=== PATIENT | female | born 1965 | race Caucasian/White ===

== ENCOUNTER → 2020-07-06 15:59 | Outpatient (CLI) | payer BC, SELFPAY ==
--- NOTE | ~2020-07-06 | MM_ITS ---
EXAMINATION: MM screening [facility] BI w magdalena HISTORY: Screening mammogram TECHNIQUE: Craniocaudal and mediolateral oblique 3-D tomosynthesis images were obtained and synthetic 2-D images were generated. CAD analysis was submitted and interpreted. COMPARISON: 06/16/2019, 05/29/2018, 07/04/2017, 07/07/2016 BREAST PARENCHYMAL COMPOSITION: The breasts are heterogeneously dense, which may obscure small masses . FINDINGS: There is no evidence of suspicious mass, calcification, or architectural distortion to sugg est malignancy in either breast. There has been no suspicious interval change. IMPRESSION: 1. No mammographic evidence of malignancy. 2. Recommend routine screening mammography in one year. BI-RADS Category 1: Negative Reviewed, dictated and finalized at location A. AND SCIENCE INSTRUCTOR
== END ==
PROVIDERS: PCP Family Medicine Adolescent Medicine; Visit Provider Obstetrics & Gynecology
DX: Z12.31 Encounter for screening mammogram for malignant neoplasm of breast (principal)
CPT/HCPCS: 77063; 77067

== ENCOUNTER → 2021-07-18 07:12 | Outpatient (CLI) | payer BC, SELFPAY ==
--- NOTE | ~2021-07-18 | MM_ITS ---
EXAMINATION: MM screening [facility] BI w magdalena HISTORY: Screening TECHNIQUE: Craniocaudal and mediolateral oblique 3-D tomosynthesis images were obtained and synthetic 2-D images were generated. CAD analysis was submitted and interpreted. COMPARISON: Comparison to multiple prior studies sequentially, with oldest reviewed study dated 06/14. BREAST PARENCHYMAL COMPOSITION: The breasts are heterogeneously dense, which may obscure small masses . FINDINGS: There scattered benign-appearing breast calcifications. There is no evidence of suspicious mass, calcification, or architectural distortion to suggest malignancy in either breast. There has be en no suspicious interval change. IMPRESSION: 1. No mammographic evidence of malignancy. 2. Recommend routine screening mammography in one year. BI-RADS Category 2: Benign finding(s). Reviewed, dictated and finalized at location A. ER HAND
== END ==
PROVIDERS: Visit Provider Obstetrics & Gynecology
DX: Z12.31 Encounter for screening mammogram for malignant neoplasm of breast (principal)
CPT/HCPCS: 77063; 77067

== ENCOUNTER → 2022-08-14 15:19 | Outpatient (CLI) | payer BC, SELFPAY ==
--- NOTE | ~2022-08-14 | MM_ITS ---
EXAMINATION: MM screening [facility] BI w magdalena HISTORY: Screening mammogram TECHNIQUE: Craniocaudal and mediolateral oblique 3-D tomosynthesis images were obtained and synthetic 2-D images were generated. CAD analysis was submitted and interpreted. COMPARISON: 07/18/2021, 07/06/2020, 06/16/2019 bilateral screening mammogram examinations BREAST PARENCHYMAL COMPOSITION: The breasts are heterogeneously dense, which may obscure small masses . FINDINGS: Stable mild fibroglandular asymmetry. There is no evidence of suspicious mass, calcificatio n, or architectural distortion to suggest malignancy in either breast. There has been no suspicious i nterval change. IMPRESSION: 1. No mammographic evidence of malignancy. 2. Recommend routine screening mammography in one year. BI-RADS Category 2: Benign finding(s). Reviewed, dictated and finalized at location A.
== END ==
PROVIDERS: PCP Family Medicine Adolescent Medicine; Visit Provider Obstetrics & Gynecology
DX: Z12.31 Encounter for screening mammogram for malignant neoplasm of breast (principal)
CPT/HCPCS: 77063; 77067

== ENCOUNTER 2023-09-13 13:50 | Outpatient (CLI) | payer BC, SELFPAY ==
--- NOTE | ~2023-09-13 | MM_ITS ---
EXAMINATION: MM screening [facility] BI w magdalena HISTORY: Screening TECHNIQUE: Craniocaudal and mediolateral oblique 3-D tomosynthesis images were obtained and synthetic 2-D images were generated. CAD analysis was submitted and interpreted. COMPARISON: Comparison to multiple prior studies sequentially, with oldest reviewed study dated 07/18. BREAST PARENCHYMAL COMPOSITION: Dense: The breasts are heterogeneously dense, which may obscure small masses FINDINGS: There is no evidence of suspicious mass, calcification, or architectural distortion to sugg est malignancy in either breast. There has been no suspicious interval change. IMPRESSION: 1. No mammographic evidence of malignancy. 2. Recommend routine screening mammography in one year. BI-RADS Category 1: Negative Reviewed, dictated and finalized at location A.
== END 2023-09-13 13:51 ==
PROVIDERS: PCP Obstetrics & Gynecology; Visit Provider Obstetrics & Gynecology
DX: Z12.31 Encounter for screening mammogram for malignant neoplasm of breast (principal)
CPT/HCPCS: 77063; 77067

== ENCOUNTER 2024-09-10 00:53 | Day surgery (SDC) | payer BC, SELFPAY ==
[2024-09-01 11:12] VITALS: BMI 24.9
--- OUTSIDE RECORDS SUMMARY | 2024-09-10 00:56 | XMS_ITS | Clinical Summary ---
Author Organization [facility] Address [address] [place] [address] Care Team Providers Care Millwright Helper Name Role Phone Darius Olivia MD Primary Care Provider + Source Comments [facility],non-owned Affiliates and Associated Physician Practices is amultiple site organization consisting of ambulatory clinics and hospital sitesin [place], [place], [place] and [place]. This disclosure is being madepursuant to the Care Everywhere program and may not contain all information available regarding this patient. Last updated 18.[facility] [employer] Social History Tobacco Use Types Packs/Day Years Used Date Smoking Tobacco: Never Assessed Sex and Gender Information Value Date Recorded Sex Assigned at Not on file Gender Identity Not on file Sexual Orientation Not on file Plan of Treatment Health Maintenance Due Date Last Done Comments COLOGUARD (AGES 45-75) - COL ON CA SCREENING 1967 COLON MONITORING 1967 COLONOSCOPY - COLON CA SCREENING 1967 CT COLONOGRAPHY - COLON CA SCREENING 1967 Colorectal Cancer Screening 1967 FIT - COLON CA SCREENING 1967 FLEX SIG - COLON CA SCREENING 1967 LIPID TESTING 1967 MAMMOGRAM 1967 PAP SMEAR 1967 HIV SCREENING 1982 HEPATITIS C SCREENING 06/01/1985 DTAP/TDAP/TD VACCINES (1 - Tdap) 1986 HEPATITIS B VACCINE (1 of 3 - 19+ 3-dose series) 1986 PNEUMOCOCCAL VACCINE 50+ (1 of 1 - PCV) 2017 ZOSTER VACCINE (1 of 2) 2017 COVID-19 VACCINE ( - 2023-2 5 season) 2024 DEPRESSION SCREENING 06/03/2024 INFLUENZA VACCINE (Season Ended) 2025 HIB VACCINE Aged Out No longer eligi ble based on patient's age to complete this topic HPV VACCINE Aged Out No longer eligi ble based on patient's age to complete this topic MENINGOCOCCAL (Group B) VACC INE SHARED DECISION-MAKING Aged Out No longer eligibl e based on patient's age to complete this topic MENINGOCOCCAL GROUPS A/C/Y/W VACCINE Aged Out No longer eligible b ased on patient's age to complete this topic PNEUMOCOCCAL VACCINE Aged Out No long er eligible based on patient's age to complete this topic Care Teams Millwright Helper Relationship Specialty Start Date End Date Darius Olivia MD [address] [place] [address] PCP - General 09/13/17
--- OUTSIDE RECORDS SUMMARY | 2024-09-10 00:56 | XMS_ITS | Encounter Summary ---
Author Organization [facility] Address [address] [place] [address] Care Team Providers Care Contract Post Office Clerk Name Role Phone Darius Olivia MD Primary Care Provider + Encounter Details Date Type Department Care Team (Late st Contact Info) Description 09/13/2020 Lab Requisition [facility] DermPath Lab [address] [place] [phone] Johnny Neff MD [address] [place] [address] Social History Tobacco Use Types Packs/Day Years Used Date Smoking Tobacco: Never Assessed Sex and Gender Information Value Date Recorded Sex Assigned at Not on file Gender Identity Not on file Sexual Orientation Not on file documented as of this encounter Plan of Treatment Not on file documented as of this encounter Procedures Procedure Name Priority Date/Time Associated Diagnosis Comments DERMATOPATHOLOGY Routine 09/09/2020 12:0 0 AM CDT documented in this encounter Results * DERMATOPATHOLOGY (09/09/2020 12:00 AM CDT) Case Report Dermatopathology Report Case: [id number] Authorizing Provider: Johnny Neff MD Collected: 09/09/2020 12:00 AM Ordering Location: [facility] DermPath Lab Received: 09/13/2020 08:11 AM Pathologist: Eva Ward MD Specimen: Skin, right jaw 1 5:40 PM CDT DERMATOPATHOLOGY LABORATORY Final Diagnosis Specimen A. SKIN, right jaw: INTRADERMAL MELANOCYTIC NEVUS (D22.39) 1 5:40 PM CDT DERMATOPATHOLOGY LABORATORY Clinical History Ang hyperplasia vs BCC. Path# [id number]. 1 5:40 PM CDT DERMATOPATHOLOGY LABORATORY Gross Description Specimen A: Received is one formalin filled container labeled with the patient's name and designated right jaw. The specimen consists of a shave biopsy measuring [id number]. Jar 0. 1 5:40 PM CDT DERMATOPATHOLOGY LABORATORY Microscopic Description Specimen A. SKIN, right jaw: There are nests of cytologically bland melanocytes within the dermis that mature with depth. 1 5:40 PM CDT DERMATOPATHOLOGY LABORATORY Disclaimer An external and internal positive and negative controls are appropriate for the histochemical, immunohistochemical and immunofluorescence stain(s) in this case (if any), except where stated explicitly. The performance characteristics of the stain(s) cited in this report were developed and its performance characteristic determined by the Dermatopathology Laboratory at [facility], directed by Dr. Shine Ruggiero. These tests need not be, and therefore are not, approved by the [place] Food and Drug Administration. The tests are used for clinical purposes. Billing Codes Specimen Charges Stain Charges 77637 1 1 5:40 PM CDT DERMATOPATHOLOGY LABORATORY Embedded Images 1 5:40 PM CDT DERMATOPATHOLOGY LABORATORY Pathology/Cytolog y TISSUE SPECIMEN FROM SKIN / Unknown 09/09/2020 09/13/2020 8:11 AM CDT Johnny Neff MD LAB - PATHOLOGY/CYTO LOGY ORDERABLES DERMATOPATHOLOGY LABORATORY [facility] - Department of Dermatology [address], [address] [phone] documented in this encounter Visit Diagnoses Not on filedocumented in this encounter Care Teams Contract Post Office Clerk Relationship Specialty Start Date End Date Darius Olivia MD [address] [address] PCP - General 09/13/17 documented as of this encounter
--- OUTSIDE RECORDS SUMMARY | 2024-09-10 00:56 | XMS_ITS | Clinical Summary ---
Author Organization [facility] Address [address] [place] [phone] Care Team Providers Care Information Security Risk Analyst Name Role Phone Darius Olivia MD Primary Care Prov ider Darius Oilvia MD Unavailable + Allergies No known active allergies Medications spironolactone (ALDACTONE) 50 mg tablet 03/28/2022 Active multivitamin with minerals tablet Take 1 tablet by mouth daily Active meloxicam (MOBIC) 7.5 mg tablet Take 1 tablet (7.5 mg total) by mouth 2 (two) times a day as needed for pain 60 tablet 09/13/2022 Active gabapentin (NEURONTIN) 100 mg capsule Take 1 capsule (100 mg total) by mouth 3 (three) times a day 90 capsule 09/13/2022 Active Active Problems No known active problems Surgical History Surgery Date Site/Laterality Comments OTHER SURGICAL HISTORY thyroid nodule: patient advised to f/u with PCP Medical History Medical History Date Comments Hx Other Medical thyroid nodule Hx Other Medical uterine ablatio n Hx Other Medical endometriosis Anterolisthesis of lumbar spine-grade 1 L4 on L5 05/14/2022 DDD (degenerative disc disease), lumbar Lumbar facet arthropathy Levocurvature of spine-mild 05/14/2022 Family History Medical History Relation Name Comments Colon polyps Mother Colon polyps; Other Other 1 No family histo ry of Cancer, colon; Other Other 2 No family histo ry of Crohn's disease; Other Other 3 No family histo ry of Ulcerative colitis; Relation Name Status Comments Mother Other 1 Other 2 Other 3 Social History Tobacco Use Types Packs/Day Years Used Date Smoking Tobacco: Every Day Cigarettes Vaping Tobacco Cessation:Ready to Q uit: Not Asked; Counseling Given: Not Answered Alcohol Use Standard Drinks/Week Comments Yes 0 (1 standard drink = 0.6 oz pur e alcohol) AUDIT-C Answer Date Recorded Q1: How often do you have a drink containing alc ohol? 2-4 times a month 05/14/2022 Q2: How many drinks containi ng alcohol do you have on a typical day when you are drinking? 1 or 2 05/14/2022 Q3: How often do you have si x or more drinks on one occasion? Never 05/14/2022 Comments Unknown Sex and Gender Information Value Date Recorded Sex Assigned at Not on file Legal Sex Female 3:14 AM HOT DIE PICKER Gender Identity Not on file Sexual Orientation Not on file Obstetrics History Last Filed Vital Signs Vital Sign Reading Time Taken Comments Blood Pressure 115/77 07/06/2014 9:34 AM HOT DIE PICKER Pulse 73 07/06/2014 9:34 AM HOT DIE PICKER Temperature - - Respiratory Rate - - Oxygen Saturation - - Inhaled Oxygen Concentration - - Weight 72.6 kg (160 lb) 09/13/2022 1:02 PM CDT Height 167.6 cm (5' 6 ) 09/13/2022 1:02 PM CDT Body Mass Index 25.82 09/13/2022 1:02 PM CDT Plan of Treatment Health Maintenance Due Date Last Done Comments Breast Cancer Screening-Mammogram 1967 Cervical Cancer Screening 1967 Depression Screening 1967 Hepatitis C Screening 1967 DTaP/Tdap/Td Vaccine (1 - Tdap) 1978 Hepatitis B Screening 1985 Regular Well Visit/Exam 18-64 1985 Pneumococcal vaccine <65 (1 of 2 - PCV) 1986 Zoster Vaccine (1 of 2) 2017 Colon Cancer Screening-Colonoscopy 12/17/20232013 Covid-19 Vaccine ( season) 2024, 11/04/2020 Influenza Vaccine (#1) 2024 Colon Cancer Screening-CT Colonography Discontinued Colon Cancer Screening-DNA Stool Discontinued 12/17/19 14 Colon Cancer Screening-FIT Discontinued 12/16/2013 Colon Cancer Screening-Sigmoidoscopy Discontinued 12/01 Procedures Procedure Name Priority Date/Time Associated Diagnosis Comments COLONOSCOPY REPORT 12/16/2013 from Last 3 Months or Most Recently Relevant to Health Maintenance Results * COLONOSCOPY REPORT (12/16/2013) Anatomical Region Laterality Modality Other Narrative 12/16/2013 Ordered by an unspecified provider. us Historical Provider GI PROCEDURE ORDERABLES F inal Result from Last 3 Months or Most Recently Relevant to Health Maintenance Insurance [place] [employer] [employer] Care Teams Information Security Risk Analyst Relationship Specialty Start Date End Date Darius Olivia MD [address] [place] [address] PCP - General 04/08/19 Darius Olivia MD [address] [place] [address] 04/08/19
--- OUTSIDE RECORDS SUMMARY | 2024-09-10 00:56 | XMS_ITS | Referral Summary ---
Author Organization [facility] Address [address] [place] [phone] Care Team Providers Care Senior Peoplesoft Developer Name Role Phone Darius Olivia MD Primary Care Prov ider Darius Olivia MD Unavailable + Allergies No known active [...] Active Active Problems No known active problems Social History Tobacco Use Types Packs/Day Years [...] on file Legal Sex Female 3:14 AM AIR POLLUTION ENGINEER Gender Identity Not on file Sexual Orientation Not on file Last Filed Vital Signs Vital Sign Reading Time Taken Comments Blood Pressure 115/77 07/06/2014 9:34 AM AIR POLLUTION ENGINEER Pulse 73 07/06/2014 9:34 AM AIR POLLUTION ENGINEER Temperature - - Respiratory Rate - - Oxygen Saturation - - Inhaled Oxygen Concentration - - Weight 72.6 kg (160 lb) 09/13/2022 1:02 PM CDT Height 167.6 cm (5' 6 ) 09/13/2022 1:02 PM CDT Body Mass Index 25.82 09/13/2022 1:02 PM CDT Plan of Treatment Not on file Procedures Procedure Name Priority Date/Time Associated Diagnosis Comments COLONOSCOPY REPORT 12/16/2013 from Last 3 Months or Most Recently Relevant to Health Maintenance Results * COLONOSCOPY REPORT (12/16/2013) Anatomical Region Laterality Modality Other Narrative 12/16/2013 Ordered by an unspecified provider. Historical Provider GI PROCEDURE ORDERABLES F inal Result from Last 3 Months or Most Recently Relevant to Health Maintenance Insurance [employer] OOS [employer] ACCESS OOS Care Teams Senior Peoplesoft Developer Relationship Specialty Start Date End Date Darius Olivia MD [address] [place] [address] PCP - General 04/08/19 Darius Olivia MD [address] [place] [address] 04/08/19
--- OUTSIDE RECORDS SUMMARY | 2024-09-10 00:56 | XMS_ITS | Encounter Summary ---
Author Organization [facility] Address [address] [place] [address] Care Team Providers Care Heater Engineer Helper Name Role Phone Darius Olivia MD Primary Care Provider + Encounter Details Date Type Department Care Team (Late st Contact Info) Description 05/10/2021 Lab Requisition [facility] DermPath Lab [address] [place] [phone] Johnny Neff MD [address] [place] [address] Social History Tobacco Use Types Packs/Day Years Used Date Smoking Tobacco: Never Assessed Sex and Gender Information Value Date Recorded Sex Assigned at Not on file Gender Identity Not on file Sexual Orientation Not on file documented as of this encounter Plan of Treatment Not on file documented as of this encounter Procedures Procedure Name Priority Date/Time Associated Diagnosis Comments DERMATOPATHOLOGY Routine 05/09/2021 12:0 0 AM BACK TENDER PAPER MACHINE documented in this encounter Results * DERMATOPATHOLOGY (05/09/2021 12:00 AM BACK TENDER PAPER MACHINE) Case Report Dermatopathology Report Case: [id number] Authorizing Provider: Johnny Neff MD Collected: 05/09/2021 12:00 AM Ordering Location: [facility] DermPath Lab Received: 05/10/2021 04:51 PM Pathologist: Aurelia Herrera MD Specimens: A) - Skin, left upper posterior arm B) - Skin, right upper arm C) - Skin, right upper back 12:47 PM BACK TENDER PAPER MACHINE DERMATOPATHOLOGY LABORATORY Final Diagnosis Specimen A. SKIN, left upper posterior arm: INTRADERMAL MELANOCYTIC NEVUS WITH CONGENITAL FEATURES (D22.9) Specimen B. SKIN, right upper arm: COMPOUND NEVUS WITH CONGENITAL FEATURES (D22.61) Specimen C. SKIN, right upper back: INTRADERMAL MELANOCYTIC NEVUS WITH CONGENITAL FEATURES (D22.9) 12:47 PM [facility] DERMATOPATHOLOGY LABORATORY Clinical History A: Nevus R/O atypia. Path# [id number]. B: Nevus R/O atypia. Path# [id number]. C: Nevus R/O atypia. Path# [id number]. 12:47 PM [facility] DERMATOPATHOLOGY LABORATORY Gross Description Specimen A: Received is one formalin filled container labeled with the patient's name and designated left upper posterior arm. The specimen consists of a shave biopsy measuring [id number]. Jar 0. Specimen B: Received is one formalin filled container labeled with the patient's name and designated right upper arm. The specimen consists of a shave biopsy measuring [id number]. Jar 0. Specimen C: Received is one formalin filled container labeled with the patient's name and designated right upper back. The specimen consists of a shave biopsy measuring [id number]. Jar 0. 12:47 PM [facility] DERMATOPATHOLOGY LABORATORY Microscopic Description Specimen A. SKIN, left upper posterior arm: There are nests of cytologically bland melanocytes within the dermis. Some of these melanocytes are concentrated around blood vessels and adnexal structures. Specimen B. SKIN, right upper arm: There are nests of melanocytes at the dermal-epidermal junction and within the dermis. Some melanocytes are splayed between collagen bundles and are localized around adnexal structures. Specimen C. SKIN, right upper back: There are nests of cytologically bland melanocytes within the dermis. Some of these melanocytes are concentrated around blood vessels and adnexal structures. 12:47 PM [facility] DERMATOPATHOLOGY LABORATORY Disclaimer An external and internal positive and negative controls are appropriate for the histochemical, immunohistochemical and immunofluorescence stain(s) in this case (if any), except where stated explicitly. The performance characteristics of the stain(s) cited in this report were developed and its performance characteristic determined by the Dermatopathology Laboratory at [facility], directed by Dr. Shine Ruggiero. These tests need not be, and therefore are not, approved by the [place] Food and Drug Administration. The tests are used for clinical purposes. Billing Codes Specimen Charges Stain Charges 73685 [id number] 36441 1 1 1 1 12:47 PM BACK TENDER PAPER MACHINE DERMATOPATHOLOGY LABORATORY Embedded Images 12:47 PM BACK TENDER PAPER MACHINE DERMATOPATHOLOGY LABORATORY Pathology/Cytology TISSUE SPECIMEN FROM SKIN / Unknown 05/09/2021 05/10/2021 4:51 PM BACK TENDER PAPER MACHINE Miscellaneous samples (specimen) TISSUE SPECIMEN FROM SKIN / Unknown 05/09/2021 05/10/2021 4:51 PM BACK TENDER PAPER MACHINE Miscellaneous samples (specimen) TISSUE SPECIMEN FROM SKIN / Unknown 05/09/2021 05/10/2021 4:51 PM BACK TENDER PAPER MACHINE Johnny Neff MD LAB - PATHOLOGY/CYTO LOGY ORDERABLES DERMATOPATHOLOGY LABORATORY [facility] - Department of Dermatology [facility] Medicine [address] [place] [address], [address] [phone] documented in this encounter Visit Diagnoses Not on filedocumented in this encounter Care Teams Heater Engineer Helper Relationship Specialty Start Date End Date Darius Olivia MD [address] [place] [id number] PCP - General 09/13/17 documented as of this encounter
--- OUTSIDE RECORDS SUMMARY | 2024-09-10 00:56 | XMS_ITS | Encounter Summary ---
Author Organization [facility] Address [address] [place] [address] Care Team Providers Care Siding Installer Name Role Phone Darius Olivia MD Primary Care Provider + Encounter Details Date Type Department Care Team (Late st Contact Info) Description 08/31/2022 Lab Requisition [facility] [address] [place] [phone] Johnny Neff MD [address] [place] [address] Social History Tobacco Use Types Packs/Day Years Used Date Smoking Tobacco: Never Assessed Sex and Gender Information Value Date Recorded Sex Assigned at Not on file Gender Identity Not on file Sexual Orientation Not on file documented as of this encounter Plan of Treatment Not on file documented as of this encounter Procedures Procedure Name Priority Date/Time Associated Diagnosis Comments DERMATOPATHOLOGY Routine 08/29/2022 3:33 AM CDT documented in this encounter Results * DERMATOPATHOLOGY (08/29/2022 3:33 AM CDT) Case Report Dermatopathology Report Case: [id number] Authorizing Provider: Johnny Neff MD Collected: 08/29/2022 03:33 AM Ordering Location: [facility] Received: 08/31/2022 09:27 AM Pathologist: Chantel Franklin MD Specimen: Skin, right post shoulder 12:57 PM CDT DERMATOPATHOLOGY LABORATORY Final Diagnosis Specimen A. SKIN, right post shoulder: LENTIGINOUS MELANOCYTIC NEVUS, COMPOUND TYPE, IRRITATED (D22.61) 3 12:57 PM CDT DERMATOPATHOLOGY LABORATORY Clinical History Lentigo vs MM Path#[id number] 3 12:57 PM CDT DERMATOPATHOLOGY LABORATORY Gross Description Specimen A: Received is one formalin filled container labeled with the patient's name and designated right post shoulder. The specimen consists of a shave biopsy measuring 6x5x1 mm. Jar 0. 12:57 PM CDT DERMATOPATHOLOGY LABORATORY Microscopic Description Specimen A. SKIN, right post shoulder: This is a compound nevus. There is melanin pigment in the stratum corneum. There is a lentiginous proliferation of melanocytes between nevus nests of cells along the dermal epidermal junction. There is underlying fibroplasia of the papillary dermis. The intradermal component is bland in appearance and matures with depth. (Compound Malachi's Nevus) 12:57 PM CDT DERMATOPATHOLOGY LABORATORY Disclaimer An external and internal positive and negative controls are appropriate for the histochemical, immunohistochemical and immunofluorescence stain(s) in this case (if any), except where stated explicitly. The performance characteristics of the stain(s) cited in this report were developed and its performance characteristic determined by the Dermatopathology Laboratory at [facility], directed by Dr. Shine Ruggiero. These tests need not be, and therefore are not, approved by the [place] Food and Drug Administration. The tests are used for clinical purposes. Billing Codes Specimen Charges Stain Charges 25768 1 3 12:57 PM CDT DERMATOPATHOLOGY LABORATORY Embedded Images 3 12:57 PM CDT DERMATOPATHOLOGY LABORATORY Pathology/Cytolo gy TISSUE SPECIMEN FROM SKIN / Unknown 08/29/2022 3:33 AM CDT 08/31/2022 9:27 AM CDT Johnny Neff MD LAB - PATHOLOGY/CYTO LOGY ORDERABLES DERMATOPATHOLOGY LABORATORY [facility] - Department of Dermatology [address], [address] [phone] documented in this encounter Visit Diagnoses Not on filedocumented in this encounter Care Teams Siding Installer Relationship Specialty Start Date End Date Darius Olivia MD [address] [address] PCP - General 09/13/17 documented as of this encounter
[2024-09-10 09:10] VITALS: BP 109/82; PULSE 83; RESP 18; TEMP 36.6; O2SAT 100
[2024-09-10] MEDS: LACTATED RINGERS 1,000 ML 150 ML IV CONT (09:18)
--- NOTE | 2024-09-10 09:33 | P.PNAN_ITS ---
Anes - Initial Pre Proc Eval Procedure: Operation Date: 09/10/24 10:30 Proposed Procedures p Screening Colonoscopy - Zach Devi MD Date/Time: 09/10/24 09:34 Surgeon: Zach Devi MD Pre Op Diagnosis: Screen Patient Data Age: 59 Gender: F Height: 1.7 m Weight: 74.2 kg Last Vital Signs Temp 97.8 F 09/10/24 09:10 Pulse 83 09/10/24 09:10 Resp 18 09/10/24 09:10 BP 109/82 09/10/24 09:10 Pulse Ox 100 09/10/24 09:10 O2 Del Method Room Air 09/10/24 09:10 Allergies Allergy/AdvReac Type Severity Reaction Status Date / Time No Known Allergies Allergy Verified 09/10/24 09:09 Home Medications ?Medication ?Instructions ?Recorded ?Confirmed ?Type cyanocobalamin (vitamin B-12) 1,000 mcg PO DAILY 09/21/22 09/10/24 History 1,000 mcg capsule spironolactone 100 mg tablet 100 mg PO DAILY 09/21/22 09/10/24 History vitamin E (dl, acetate) 450 mg 450 mg PO DAILY 09/21/22 09/10/24 History (1,000 unit) capsule Patient hx anesthesia problems: none Family hx anesthesia problems: none Results Review: All pre-operative results and documents have been reviewed as part of the pre- operative evaluation. PENDING SALE TO [facility] Past Medical History Medical History (Updated 09/21/22 @ 10:40 by Twila Bañuelos APRN) Personal history of skin cancer History of atypical nevus Endometriosis Surgical History Surgical History (Updated 09/21/22 @ 10:40 by Twila Bañuelos APRN) History of tonsillectomy H/O total hysterectomy reports ovaries were spared Family History Family History Grandparent Family history of malignant neoplasm of breast Mother Family history of malignant neoplasm of breast in first degree relative Social History Social History Smoking status: Light tobacco smoker Tobacco type: cigarettes Additional smoking assessment comments: smokes socially, few times a week Alcohol intake: current Drinks per week: 4 Substance use: never Substance use type: does not use Living arrangements: with family Spiritual care concerns: No Anes - Eval Final PreProcedure Day of Procedure 09/10/24 09:34 Patient weight: normal Heart: regular rate and rhythm Lungs: clear to auscultation Airway: Mallampati scale class II Neurological: alert and oriented Last oral intake: >/= 8 hours ASA classification: II Emergent: no Anesthetic plan: proceed Anesthesia type and monitoring: general GIVS and standard monitoring Results Review: All pre-operative results and documents have been reviewed as part of the pre- operative evaluation. Informed Consent: The patient's anesthetic plan and its attendant risks and benefits were disc ussed with the patient/family/POA. Questions were solicited and answers provided to the satisfaction of the patient/family/POA.
--- NOTE | 2024-09-10 09:44 | PM.IMHP ---
H&P: HPI History of Present Illness Date/Time: 09/10/24 09:44 Chief Complaint: Screening colonoscopy Narrative: This is the patient's 2nd colonoscopy. The previous 1 was 10 years ago. There are no GI symptoms and there is no family history of colorectal cancer. Review of Systems Review of Systems: All systems reviewed & are unremarkable except as noted in HPI and below PMFSH Past Medical History Medical History (Updated 09/10/24 @ 09:45 by Zach Devi MD) Personal history of skin cancer History of atypical nevus Endometriosis Surgical History Surgical History (Updated 09/21/22 @ 10:40 by Twila Bañuelos APRN) History of tonsillectomy H/O total hysterectomy reports ovaries were spared Family History Family History Grandparent Family history of malignant neoplasm of breast Mother Family history of malignant neoplasm of breast in first degree relative Social History Social History Smoking status: Light tobacco smoker Tobacco type: cigarettes Additional smoking assessment comments: smokes socially, few times a week Alcohol intake: current Drinks per week: 4 Substance use: never Substance use type: does not use Living arrangements: with family Spiritual care concerns: No Meds Home Medications and Allergies Home Medications ?Medication ?Instructions ?Recorded ?Confirmed ?Type cyanocobalamin (vitamin B-12) 1,000 mcg PO DAILY 09/21/22 09/10/24 History 1,000 mcg capsule spironolactone 100 mg tablet 100 mg PO DAILY 09/21/22 09/10/24 History vitamin E (dl, acetate) 450 mg 450 mg PO DAILY 09/21/22 09/10/24 History (1,000 unit) capsule Allergies Allergy/AdvReac Type Severity Reaction Status Date / Time No Known Allergies Allergy Verified 09/10/24 09:09 Vital Signs Vital Signs - 24 hr 09/10/24 09:10 Temperature 97.8 F Pulse Rate 83 Respiratory Rate 18 Blood Pressure 109/82 Pulse Oximetry 100 Oxygen Delivery Room Air Exam Const: General: cooperative and healthy appearing Resp: Effort & Inspection: normal respiratory effort and able to speak in complete sentences Auscultation: clear to auscultation bilaterally Cardio: Rate: regular rate Rhythm: regular rhythm GI: Inspection: normal to inspection GI Palp: No No hepatosplenomegaly present Auscultation: normal bowel sounds Rectal Exam: deferred Skin: General skin exam: normal color Psych: Appearance: grossly normal Mental Status: mental status grossly normal Assessment and Plan Assessment and plan (1) Encounter for screening colonoscopy: Code(s): Z12.11 - Encounter for screening for malignant neoplasm of colon Status: Acute Assessment and Plan: The patient is deemed a good candidate for the procedure. Consent signed. Will proceed.
[2024-09-10 10:14] VITALS: BP 129/80; PULSE 72; RESP 23; O2SAT 98
[2024-09-10 10:24] VITALS: BP 117/79; PULSE 71; RESP 16; O2SAT 100
[2024-09-10 10:34] VITALS: BP 115/74; PULSE 71; RESP 19; O2SAT 100
== END 2024-09-10 10:41 | disposition home or self-care (01) ==
PROVIDERS: PCP Family Medicine Adolescent Medicine; Referring Provider Family Medicine Adolescent Medicine; Visit Provider Internal Medicine Gastroenterology
PROC: 0DJD8ZZ Inspection of Lower Intestinal Tract, Via Natural or Artificial Opening Endoscopic (ICD-10-PCS; CPT 45378; principal; 2024-09-10 10:30)
DX: Z12.11 Encounter for screening for malignant neoplasm of colon (principal); K63.89 Other specified diseases of intestine; Z72.0 Tobacco use
CPT/HCPCS: 45378; J2003; J2704; J7120

== ENCOUNTER 2024-10-28 15:21 | Outpatient (CLI) | payer BC, SELFPAY ==
--- NOTE | ~2024-10-28 | MM_ITS ---
EXAMINATION: MM screening kenia BI w magdalena HISTORY: Screening TECHNIQUE: Craniocaudal and mediolateral oblique 3-D tomosynthesis images were obtained and synthetic 2-D images were generated. CAD analysis was submitted and interpreted. COMPARISON: Comparison to multiple prior studies sequentially, with oldest reviewed study dated 05/04. BREAST PARENCHYMAL COMPOSITION: Dense: The breasts are heterogeneously dense, which may obscure small masses FINDINGS: There is no evidence of suspicious mass, calcification, or architectural distortion to sugg est malignancy in either breast. There has been no suspicious interval change. IMPRESSION: 1. No mammographic evidence of malignancy. 2. Recommend routine screening mammography in one year. BI-RADS Category 1: Negative Reviewed, dictated and finalized at location A.
== END 2024-10-28 15:22 | disposition home or self-care (01) ==
PROVIDERS: PCP Family Medicine Adolescent Medicine; Visit Provider Obstetrics & Gynecology
DX: Z12.31 Encounter for screening mammogram for malignant neoplasm of breast (principal)
CPT/HCPCS: 77063; 77067